=== PATIENT | male | born 1985 | race American Indian/Alaskan Native ===

== ENCOUNTER 2016-10-19 19:42 | Emergency (ER) | payer BC ==
[2016-10-19 20:27] VITALS: BP 147/90
--- NOTE | 2016-10-19 21:30 | XRay Report ---
FINAL REPORT EXAM: XR SPINE THORACIC 3V HISTORY: pain TECHNIQUE: Thoracic spine three views 3 images PRIORS: None. FINDINGS: No gross abnormality is seen in the visualized paraspinal soft tissues. Vertebral body height is preserved. No acute fracture or anterolisthesis is identified. Intervertebral disc height is preserved. IMPRESSION: 1. No acute osseous abnormality is identified.
--- NOTE | 2016-10-19 21:31 | XRay Report ---
FINAL REPORT EXAM: XR SPINE LUMBOSACRAL 2-3V HISTORY: pain TECHNIQUE: Lumbar spine three views 3 images PRIORS: None. FINDINGS: Phlebolith is noted in the right hemipelvis. Vertebral body height is preserved. No acute fracture or anterolisthesis is identified. Intervertebral disc height is preserved. IMPRESSION: 1. No acute osseous abnormality is identified.
--- NOTE | 2016-10-23 11:11 | ED Elopement Review ---
ED Pt Elopement review - Call Back decision Pt Call Back Decision: No action required
== END 2016-10-19 20:30 | disposition left against medical advice (07) ==
LOC: EDBD → ED 19:42
DX: M54.9 Dorsalgia, unspecified (principal); Z53.21 Procedure and treatment not carried out due to patient leaving prior to being seen by health care provider
CPT/HCPCS: 72072; 72100

== ENCOUNTER 2016-10-25 20:21 | Emergency (ER) | payer BC ==
--- NOTE | 2016-10-25 23:43 | Emergency Department Report ---
ED Back Pain/Injury HPI - General Chief Complaint: Back Pain/Injury Stated Complaint: BACK PAIN Time Seen by Provider: 10/25/16 23:08 Source: patient Limitations: No Limitations - History of Present Illness Initial Comments: 30-year-old male past medical history none presents with complaint of mild upper and lower back pain for one week. 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 Patient presents to the ED a few days ago had x-rays done but eloped before full assessment. On exam patient denies any abdominal pain nausea vomiting no fever no chills no dysuria no hematuria, no chest pain no palpitations no shortness of breath in his nonradiating feel spastic as per patient. Patient states that it feels as though he is having slight spasms in his right lower back. Awake alert and oriented 3. Denies any alcohol or drug use. MD Complaint: back pain Onset/Timin -: week(s) Similar Symptoms Previously: Yes Place: home, work Radiation: other (right lower back) Severity: moderate Severity scale (0 -10): 6 Quality: aching, other (spasm) Consistency: intermittent Improves With: immobilization Worsens With: movement Context: while lifting, turning/twisting, bending Associated Symptoms: denies other symptoms - Related Data Previous Rx's Medication Instructions Recorded Last Taken Type Cyclobenzaprine [Flexeril] 10 mg PO TID PRN #15 tablet 10/26/16 Unknown Rx Naproxen [Naprosyn TAB] 500 mg PO BID PRN #20 tablet 10/26/16 Unknown Rx Allergies Allergy/AdvReac Type Severity Reaction Status Date / Time No Known Allergies Allergy Unverified 10/19/16 20:23 ED Review of Systems ROS: Stated complaint: BACK PAIN Other details as noted in HPI Constitutional: denies: chills, fever Eyes: denies: eye pain, eye discharge, vision change ENT: denies: ear pain, throat pain Respiratory: denies: cough, shortness of breath, wheezing Cardiovascular: denies: chest pain, palpitations Endocrine: no symptoms reported Gastrointestinal: denies: abdominal pain, nausea, diarrhea Genitourinary: denies: urgency, dysuria Musculoskeletal: as per HPI, back pain (spastic lower back pain denies any radiation into the legs or flanks). denies: joint swelling, arthralgia Skin: denies: rash, lesions Neurological: denies: headache, weakness, paresthesias Psychiatric: denies: anxiety, depression Hematological/Lymphatic: denies: easy bleeding, easy bruising ED Past Medical Hx - Past Medical History Previous Medical History?: Yes Hx Asthma: Yes (Albuterol inhaler prn) - Surgical History Past Surgical History?: No - Social History Smoking Status: Never Smoker Substance Use Type: Alcohol - Medications Home Medications: Home Medications Medication Instructions Recorded Confirmed Last Taken Type Cyclobenzaprine [Flexeril] 10 mg PO TID PRN #15 tablet 10/26/16 Unknown Rx Naproxen [Naprosyn TAB] 500 mg PO BID PRN #20 tablet 10/26/16 Unknown Rx ED Physical Exam - General Limitations: No Limitations General appearance: alert, in no apparent distress - Head Head exam: Present: atraumatic, normocephalic - Eye Eye exam: Present: normal appearance, PERRL, EOMI - ENT ENT exam: Present: mucous membranes moist - Neck Neck exam: Present: normal inspection - Respiratory Respiratory exam: Present: normal lung sounds bilaterally. Absent: respiratory distress - Cardiovascular Cardiovascular Exam: Present: regular rate, normal rhythm. Absent: systolic murmur, diastolic murmur, rubs, gallop - GI/Abdominal GI/Abdominal exam: Present: soft, normal bowel sounds - Rectal Rectal exam: Present: deferred - Extremities Exam Extremities exam: Present: normal inspection - Back Exam Back exam: Present: normal inspection, full ROM (back flexion and extension lateral flexion and rotation intact patient states he feels that his back is tight), muscle spasm, paraspinal tenderness (right sided lower back pain with slight palpable muscle tension and no midline spinal tenderness on cervical thoracic or lumbar spine) - Neurological Exam Neurological exam: Present: alert, oriented X3, CN II-XII intact, normal gait - Psychiatric Psychiatric exam: Present: normal affect, normal mood - Skin Skin exam: Present: warm, dry, intact, normal color. Absent: rash ED Course Vital Signs 10/25/16 20:55 Temperature 98.2 F Pulse Rate 77 Respiratory 16 Rate Blood Pressure 134/93 [Right] O2 Sat by Pulse 98 Oximetry ED Medical Decision Making - Lab Data Result diagrams: 10/26/16 00:06 10/25/16 23:47 - Medical Decision Making A/P: Skilled skeletal back pain, back muscle spasms 1-Flexeril and naproxen when necessary 2-CK, BMP, UA within normal limits 3- had x-rays which are unremarkable 4- follow-up with primary care doctor Critical care attestation.: If time is entered above; I have spent that time in minutes in the direct care of this critically ill patient, excluding procedure time. ED Disposition Clinical Impression: Musculoskeletal back pain, Muscle spasm Disposition: TO HOME OR SELFCARE Is pt being admited?: No Does the pt Need Aspirin: No Condition: Stable Instructions: Muscle Spasm (ED), Acute Low Back Pain (ED), Low Back Strain (ED) , Back Pain (ED) Prescriptions: Cyclobenzaprine [Flexeril] 10 mg PO TID PRN #15 tablet PRN Reason: Muscle Spasm Naproxen [Naprosyn TAB] 500 mg PO BID PRN #20 tablet PRN Reason: Pain Referrals: ELNY HUFFMAN MD [Staff Physician] - 3-5 Days [facility] [Outside] - 3-5 Days Forms: Work/School Release Form(ED) Time of Disposition: 00:59
[2016-10-26 00:11] LABS: Basophils % (Auto) 0.5 % (0.0-1.8); Eosinophils % (Auto) 1.5 % (0.0-4.3); Hematocrit 39.1 % (35.5-45.6); Mean Corpuscular HGB Conc 33 % (32-34); Platelet Count 180 K/mm3 (140-440); Red Blood Count 5.88 M/mm3 (3.65-5.03); Red Cell Distribution Width 15.8 % (13.2-15.2)
[2016-10-26 00:14] LABS: Mean Corpuscular Hemoglobin 22 pg (28-32); Mean Corpuscular Volume 67 fl (84-94)
[2016-10-26 00:27] LABS: BUN/Creatinine Ratio 12.22; Blood Urea Nitrogen 11 mg/dL (9-20); Carbon Dioxide 26 mmol/L (22-30); Chloride 102.9 mmol/L (98-107); Creatine Kinase 163 units/L (55-170); Glucose 93 mg/dL (75-100); Potassium 3.5 mmol/L (3.6-5.0); Sodium 144 mmol/L (137-145)
[2016-10-26 00:36] LABS: Bilirubin,Urine NEG (Negative); Blood,Urine NEG (Negative); Ketones,Urine NEG (Negative); Leukocyte Esterase,Urine TR (Negative); Mucus,Urine FEW /HPF; Nitrite,Urine NEG (Negative); Protein,Urine <15 mg/dL mg/dL (Negative)
[2016-10-26 00:39] LABS: Anion Gap 19 mmol/L
[2016-10-26 01:13] VITALS: BP 133/76
== END 2016-10-26 01:13 | disposition home or self-care (01) ==
LOC: ED 20:21
DX: M62.830 Muscle spasm of back (principal); J45.909 Unspecified asthma, uncomplicated; X50.0XXA Overexertion from strenuous movement or load, initial encounter; Y93.89 Activity, other specified; Y99.8 Other external cause status; Y92.009 Unspecified place in unspecified non-institutional (private) residence as the place of occurrence of the external cause
CPT/HCPCS: 36415; 80048; 81001; 82550; 85025; 99283